=== PATIENT | female | born 1985 | race Caucasian/White ===

== ENCOUNTER 2018-07-09 15:44 | Outpatient (REF) | payer BC, SELFPAY ==
--- NOTE | 2018-07-09 14:05 | PAPFT_PTH ---
PATIENT: Renee Perrin LOC: [facility] U#:[id number] AGE/SX: 32/F ROOM: RE07/09/[address]: Soni Osei RN : 1985 BED: DIS: 07/09/2018 SPEC #: [id number] RECD: 07/09/18 18:09 STATUS: POOJA REXiomara #: [id number] CRISTINA: 07/09/18 14:[address]: Soni Osei DEPT: [facility] Cytology RECD BY: Ilsa Angelo ENTERED: 07/09/18 18:10 SP TYPE: PAPFT OTHR DR: Mraina Ramachandran APRN Tissues: 1 - CX/ENDOCX FOR PAP SMEARS Procedures: PAP THIN PREP/UVM Screening Comments: [id number]
[2018-07-09 19:38] LABS: *AMPHETAMINES SCREEN URINE Negative (Negative); *BARBITURATES SCREEN URINE Negative (Negative); *BENZODIAZEPINES SCREEN URINE Negative (Negative); Cannabinoids THC Negative (Negative); Cocaine Screen,Urine Negative (Negative); METHADONE URINE SCREEN Negative (Negative); OPIATES URINE SCREEN Negative (Negative)
[2018-07-09 19:39] LABS: Tricyclic Antidepressants Negative (Negative)
[2018-07-13 14:03] LABS: Chlamydia Result Negative; GC Result Negative; Specimen Description CERVIX
[2018-07-13 15:00] LABS: Buprenorphine Negative; Norbuprenorphine Negative
== END 2018-07-09 16:04 ==
LOC: LBN 15:44
PROVIDERS: PCP Nurse Practitioner Family; Visit Provider Advanced Practice Midwife
DX: Z34.91 Encounter for supervision of normal pregnancy, unspecified, first trimester (principal); Z11.3 Encounter for screening for infections with a predominantly sexual mode of transmission; Z12.4 Encounter for screening for malignant neoplasm of cervix
CPT/HCPCS: 80307; 87491; 87591; 88142; 87086

== ENCOUNTER 2018-09-01 00:12 | Outpatient (CLI) | payer BC, SELFPAY ==
--- NOTE | 2018-09-01 13:07 | DI.US_ITS ---
Predicted Gestational Age: Indication/History: SURVEY 18.3 Wks Range: 17.3 to 19.3 Prior US done on: Determined by: First US X LMP History EDC by prior US: 01/30/19 For multiple gestations: Baby PLACENTA: Grade: 0 Location: Anterior X Posterior PRESENTATION: RT X LT LOW LYING PREVIA Cephalic Trans (Head RT LT ) Varied X Breech BIOMETRY: Anatomy Identified: BPD: 41 mm 18.3 wks 4 chamber Heart X Heart Rate 153 BPM HC: 161 mm 18.6 wks LVOT X Post Fossa X AC: 128 mm 18.3 wks RVOT X Ventricles X FL: 28 mm 18.4 wks Stomach X Nose NS Bladder X Lips NS Cisterna Magna: 3.3 mm CI: 80 Kidneys X Palate X Cerebellum: 1.83 mm 3 vessel cord X Spine X EFW: grms % Cord Insertion X NS= not seen Composite Age (US) 18.4 wks Many abnormalities cannot be diagnosed. A normal exam does not exclude congenital abnormality. EDC by US 01/29/19 Amniotic Fluid Index: Normal COMMENTS: RUQ: LUQ: RLQ: LLQ: Total: cm Biophysical Profile: Score 0/2 PEYTON (>2cm) Respirations (>30 sec) Body flexion/extension Extremity flexion/extension TOTAL SCORE Please see the OB ultrasound worksheet for complete details. The nose and lips were not well seen on today's examination and the patient is returning 09/08/18 for a follow up examination. A single viable fetus is noted in varying position. No anomaly was observed. Based on the patient's measurements, the gestational age is approximately 18 weeks and 4 days. The placenta is anterior. There is a normal quantity of amniotic fluid. SUMMARY: Unremarkable examination however the lips and nose are not demonstrated on today's examination and the patient is returning 09/08/18 for further evaluation.
== END 2018-09-01 00:32 ==
PROVIDERS: PCP Nurse Practitioner Family; Visit Provider Advanced Practice Midwife
DX: Z34.92 Encounter for supervision of normal pregnancy, unspecified, second trimester (principal)
CPT/HCPCS: 76805

== ENCOUNTER 2018-09-08 00:16 | Outpatient (CLI) | payer BC, SELFPAY ==
--- NOTE | 2018-09-08 10:13 | DI.US_ITS ---
SYMPTOMS/DIAGNOSIS: F/U 09/01/18 US TO VISUALIZE NOSE AND LIPS LIMITED OBSTETRICAL ULTRASOUND: Predicted Gestational Age: Indication/History: Wks Range: to Prior US done on: Determined by: First US LMP History EDC by prior US: For multiple gestations: Baby PLACENTA: Grade: Location: Anterior Posterior PRESENTATION: RT LT LOW LYING PREVIA Cephalic Trans (Head RT LT ) Varied Breech BIOMETRY: Anatomy Identified: BPD: mm wks 4 chamber Heart Heart Rate 163 BPM HC: mm wks LVOT Post Fossa AC: mm wks RVOT Ventricles FL: mm wks Stomach Nose X Bladder Lips X Cisterna Magna: mm CI: Kidneys Palate Cerebellum: mm 3 vessel cord Spine EFW: grms % Cord Insertion NS= not seen Composite Age (US) wks Many abnormalities cannot be diagnosed. A normal exam does not exclude congenital abnormality. EDC by US Amniotic Fluid Index: Oligo Normal Polyhydramnios RUQ: LUQ: RLQ: LLQ: Total: cm Biophysical Profile: Score 0/2 PEYTON (>2cm) Respirations (>30 sec) Body flexion/extension Extremity flexion/extension TOTAL SCORE COMMENTS: Comparison is 09/01/18. There is a single intrauterine gestation. heart rate is 163 beats per minute. The nose and lips were visualized on the examination and are grossly unremarkable. Complete anatomic evaluation and biometric results were performed on the examination from 09/01/18.
== END 2018-09-08 00:36 ==
PROVIDERS: PCP Nurse Practitioner Family; Visit Provider Advanced Practice Midwife
DX: Z34.92 Encounter for supervision of normal pregnancy, unspecified, second trimester (principal); Z36.2 Encounter for other antenatal screening follow-up
CPT/HCPCS: 76815

== ENCOUNTER 2018-11-10 12:57 | Outpatient (CLI) | payer MEDICAID, SELFPAY ==
[2018-11-10 14:04] LABS: Glucose,1 Hr (Glucola) 122 mg/dL (80-140)
[2018-11-10 14:42] LABS: Abs Immature Grans 0.08 k/cumm (0.0-0.09); Absolute Basophil Count 0.03 k/cumm (0.0-0.2); Absolute Eosinophil Count 0.34 k/cumm (0.0-0.7); Absolute Lymphocyte Count 2.55 k/cumm (1.2-3.4); Basophils % 0.2; Eosinophils % 2.2; HCT 39.6 % (36.0-46.0); HGB 13.3 g/dL (12.0-15.5); Immature Grans % 0.5; Lymphocytes % 16.7; Mean Corp. HGB Concentration 33.6 g/dL (32.0-36.0); Mean Corpuscular Hemoglobin 31.5 pg (27.0-33.0); Mean Corpuscular Volume 93.8 fL (80-95); Mean Platelet Volume 10.3 fL (8.0-11.0); Monocytes % 8.8; Neutrophils % 71.6; Platelet Count 333 x1000/uL (130-400); RBC 4.22 m/cumm (4.00-5.20); RBC Distribution Width 12.8 % (11.7-14.6); White Blood Cell Count 15.26 k/cumm (4.4-10.8)
[2018-11-10 15:09] LABS: Absolute Monocyte Count 1.34 k/cumm (0.11-0.7); Absolute Neutrophil Count 10.93 k/cumm (1.2-6.7)
[2018-11-11 10:34] LABS: Hepatitis B Surface Ag Negative (NEGAT)
[2018-11-11 11:00] LABS: HIV-1/2 Ag & Ab Screen Negative (NEGAT); Hepatitis C Ab w Rflx HCV PCR Negative (NEGAT)
[2018-11-11 11:02] LABS: Syphilis Serology (RPR) Negative (Negative); Varicella IgG Antibody Positive
[2018-11-11 11:24] LABS: Rubella IgG Ab (UVM) Positive
== END 2018-11-10 13:17 ==
PROVIDERS: Advanced Practice Midwife; PCP Nurse Practitioner Family; Visit Provider Advanced Practice Midwife
DX: Z34.91 Encounter for supervision of normal pregnancy, unspecified, first trimester (principal); Z11.4 Encounter for screening for human immunodeficiency virus [HIV]; Z11.59 Encounter for screening for other viral diseases; Z01.84 Encounter for antibody response examination
CPT/HCPCS: 36415; 82950; 85027; 86787; 86803; 87340; 87389; 84443; 85025; 86592; 86762

== ENCOUNTER 2019-01-05 14:57 | Outpatient (REF) | payer MEDICAID, SELFPAY ==
[2019-01-05 15:37] LABS: *AMPHETAMINES SCREEN URINE Negative (Negative); *BARBITURATES SCREEN URINE Negative (Negative); *BENZODIAZEPINES SCREEN URINE Negative (Negative); Cannabinoids THC Negative (Negative); Cocaine Screen,Urine Negative (Negative); METHADONE URINE SCREEN Negative (Negative); OPIATES URINE SCREEN Negative (Negative)
[2019-01-05 15:46] LABS: Tricyclic Antidepressants Negative (Negative)
[2019-01-08 11:27] LABS: Buprenorphine Negative
== END 2019-01-05 15:17 ==
LOC: LBN 14:57
PROVIDERS: PCP Nurse Practitioner Family; Visit Provider Advanced Practice Midwife
DX: Z34.93 Encounter for supervision of normal pregnancy, unspecified, third trimester (principal); Z36.85 Encounter for antenatal screening for Streptococcus B
CPT/HCPCS: 80307; 87081

== ENCOUNTER 2019-01-26 07:00 | Inpatient (IN) | payer MEDICAID, SELFPAY ==
[2019-01-26] MEDS: Penicillin G POT. 5,000,000 UNITS in Normal Saline 100 ML 200 UNITS IVPB (06:32)
[2019-01-26] MEDS: Normal Saline Flush 10 ML SYR IVP (06:33)
[2019-01-26 10:26] LABS: HCT 38.5 % (36.0-46.0); HGB 13.1 g/dL (12.0-15.5); Mean Corpuscular Hemoglobin 31.5 pg (27.0-33.0); Mean Corpuscular Volume 92.5 fL (80-95); Platelet Count 315 x1000/uL (130-400); RBC 4.16 m/cumm (4.00-5.20); RBC Distribution Width 13.1 % (11.7-14.6)
[2019-01-26] MEDS: Penicillin G POT. 3,000,000 UNITS in Normal Saline 50 ML 100 UNITS IVPB (10:40)
[2019-01-26] MEDS: Hamamelis Leaf/Glycerin 100 EACH BOX PR (18:00)
== END 2019-01-28 10:35 | disposition home or self-care (01) | DRG 807 ==
PROVIDERS: Admitting Provider Advanced Practice Midwife; PCP Nurse Practitioner Family; Visit Provider Advanced Practice Midwife
DX: O99.824 Streptococcus B carrier state complicating childbirth (principal); Z37.0 Single live birth; Z3A.39 39 weeks gestation of pregnancy; O70.1 Second degree perineal laceration during delivery; O99.284 Endocrine, nutritional and metabolic diseases complicating childbirth; E04.9 Nontoxic goiter, unspecified
CPT/HCPCS: 36415; 85027; 86900; 86901; G0378; J2540

== ENCOUNTER 2019-03-13 11:26 | Emergency (ER) | payer MEDICAID, SELFPAY ==
[2019-03-13 11:30] VITALS: BP 117/85; PULSE 86; RESP 16; TEMP 35.9; O2SAT 95
--- NOTE | 2019-03-13 11:47 | ED.GENADUL_ITS ---
Discharge Plan Disposition Patient Disposition: HOME Condition: Good Discharge Details Chief Complaint: Cellulitis Clinical Impression: Erythema migrans (Lyme disease) Primary Care Provider: Marina Ramachandran ED Provider: Suyapa Hogan Home Meds and New Rx's Prescriptions: New amoxicillin 500 mg capsule 500 mg PO TID Qty: 63 RF: 0 Continued PreNata 1 EACH tablet,chewable 2 tab-cap PO DAILY RF: 0 Discharge Instructions Instructions: Lyme Disease (ED) Additional Instructions: Encourage hydration. Please take the amoxicillin as prescribed. I am concerned that the rash on the back of your knee is consistent with a bull's-eye rash and early Lyme disease. This will be a 21-day course of antibiotics. Please take a probiotic while on the antibiotics. Please monitor yourself and your baby for adverse reactions as discussed. If you develop new or worsening symptoms please seek care urgently once again. Otherwise, please follow-up with your primary care for reevaluation in the next 1 to 2 weeks. Referrals: Marina Ramachandran NP [Primary Care Provider] - Discharge Data Discharge Date/Time-TO BE ENTERED AT DEPARTURE: 03/13/19 12:05 Medical Decision Making Patient is a 33-year-old female presents today with chief complaint of a tick e xposure to the posterior aspect of her right knee. Leaves exposure happened approximate 3 to 4 days ago and tick was removed last night. Noted surrounding erythema and some achiness to this area. Is been afebrile. Denies any joint pain. Patient is 1.5 months and is still breast-feeding. On exam, patient has a oblong area of erythema concerning for erythema migrans on the posterior aspect of the right knee. Plan to begin on antibiotics. As the patient is breast-feeding, will offer amoxicillin. We did discuss monitoring her child as well as herself or adverse reactions or allergic reactions. I have asked that she follow-up with her primary care doctor for reevaluation. I do not see any evidence of septic joint, patient appears nontoxic. Encouraged rest and elevation. Advised Tylenol or ibuprofen as needed for discomfort. All of her questions and concerns were addressed and she is in agreement this plan. HPI General Mode of arrival: ambulatory . Date/Time Provider Initiated Documentation: 03/13/19 11:47 . Limitations to Documentation: no limitations . Information obtained by: patient and RN notes reviewed . HPI Narrative: Patient is a 33-year-old female who is 1.5 months . She continues to breast- feed. States that last night she removed a tick from the posterior aspect of her right knee. Noted surrounding erythema and mild discomfort. No fevers or chills. No other constitutional symptoms. Believes that she was exposed 3 to 4 days ago. Related Data Home Medications Medication Instructions Recorded Confirmed PreNata 2 tab-cap PO DAILY cap 10/18/15 03/13/19 amoxicillin 500 mg PO TID #63 cap 03/13/19 Previous Rx's Medication Instructions Recorded amoxicillin 500 mg PO TID #63 cap 03/13/19 Allergies Allergy/AdvReac Type Severity Reaction Status Date / Time No Known Drug Allergies Allergy Verified 03/13/19 11:36 General Stated Complaint: Cellulitis QUINN: 4 Review of Systems Constitutional Constitutional: Reports as per HPI, Denies chills and Denies fever(s) Musculoskeletal Musculoskeletal: Reports as per HPI Integumentary/Breasts Skin/Breast: Reports as per HPI Neurologic Neurologic: Reports as per HPI, Denies sensory deficit and Denies paresthesias [facility] Medical History (Acute) delivered 01/26/2019 Surgical History Tooth extraction Widsom tooth extraction Family History (Updated 11/10/18 @ 14:20 by Shirlene Payne CNM) Grandfather Personal history of malignant neoplasm Prostate CA Heart disease Grandmother Personal history of malignant neoplasm breast CA Grandmother Personal history of malignant neoplasm Breast CA Dementia Uterine cancer Hypothyroid Great Grandmother Heart disease Father , Suicide Mental disorder Depression --> suicide Maternal Aunt Personal history of malignant neoplasm Breast CA Sister Alcohol abuse exercised induced Social History Smoking/Tobacco Use Status: Never Alcohol Intake: never Substance use type: does not use Seatbelt use: always Do you feel safe at home: Yes Do you feel safe in your relationship?: Yes Female Reproductive History Menstrual control method: none History History 4 Para 2 Hx # Term Pregnancies 2 Multiple births 0 Hx # Pregnancies 0 Ectopic pregnancies 0 AB induced 0 Hx Number of Living Children 1 AB spontaneous 2 Past Pregnancies Del. Date GA/Weeks # Outcome Route Wgt Sex Labor Lgth Anesthes ia Location Prov Complic 08/18/16 40 No Successful vaginal 3.232 kg Male 25 hrs kMelecio néstordarynmonikeli 01/26/19 39 No Successful vaginal 2.948 kg Female 9hrs 28 min Soni Mayer CNM Delivery Date: 08/18/16 On 07/09/18 @ 13:42 KIPPAULASOIN HAMMONDS ~ 2nd degree repair, w/o problems Delivery Date: 01/26/19 On 02/04/19 @ 09:55 Tamiko Martínez 2nd degree perineal laceration, repaired Exam Const General: cooperative, healthy appearing, comfortable, no acute distress and well developed Nutritional Appearance: average body habitus and well nourished Orientation: alert and awake Resp Effort & Inspection: normal respiratory effort, able to speak in complete sentences and no respiratory distress Cardio Rate: regular rate Rhythm: regular rhythm Skin General skin exam: erythema Full body images: 1. Tyner bullseye rash with central area of small scab consistent with bite Neuro General: alert and awake Cognition: normal cognition Speech: speech normal Gait: normal gait Sensory Exam: no sensory deficits noted Extrem Right lower extremity: full ROM, normal capillary refill, no joint enlargement, knee Details: tenderness (achiness posterior right knee as above), normal ROM and abrasion (central small area of scabbing consistent with tick pulled off); no swelling, no ecchymosis, no crepitus, no foreign bodies, no deformity and no unusual warmth and lower leg Details: normal to inspection and no edema; no tenderness, no localized swelling and no palpable cords; abnormal to inspection (erythema migrans rash as above) and no edema Psych Appearance: grossly normal and well kempt Mental Status: mental status grossly normal Speech and Movement: speech and movement normal Course Vital Signs Vital signs: Vital Signs Temperature 35.9 C L 03/13/19 11:30 Pulse 86 03/13/19 11:30 Respiratory Rate 16 03/13/19 11:30 Blood Pressure 117/85 03/13/19 11:30 Pulse Oximetry 95 03/13/19 11:30 Temperature 35.9 C L 03/13/19 11:30 Temperature Source Tympanic 03/13/19 11:30 Pulse 86 03/13/19 11:30 Respiratory Rate 16 03/13/19 11:30 Respiratory Effort Non-Labored 03/13/19 11:37 Blood Pressure 117/85 03/13/19 11:30 Pulse Oximetry 95 03/13/19 11:30 Pain Level 1 03/13/19 11:30
== END 2019-03-13 12:05 | disposition home or self-care (01) ==
PROVIDERS: Emergency Provider Physician Assistant; PCP Nurse Practitioner Family
DX: L03.115 Cellulitis of right lower limb (principal); A69.20 Lyme disease, unspecified; W57.XXXA Bitten or stung by nonvenomous insect and other nonvenomous arthropods, initial encounter
CPT/HCPCS: 99283

== ENCOUNTER → 2022-03-20 02:10 | Outpatient (CLI) | payer MEDICAID, SELFPAY ==
--- NOTE | 2022-03-20 06:45 | DI.US_ITS ---
Exam(s) US OB 1ST TRIMESTER EXAM: US OB 1ST TRIMESTER CLINICAL HISTORY: 1st trimester with uterine fibroid,D25.9 TECHNIQUE: Ultrasound performed using standard protocol. COMPARISON: No exams were available for comparison FINDINGS: First trimester Ob ultrasound was performed. There is a single viable intrauterine gestation with cr own-rump length measurements consistent with gestational age of 12 weeks 4 days and composite measure ments consistent with 12 weeks 6 days and EDC of September 26. Normal quantity of amniotic fluid noted. Trophoblastic tissue appears intact. cardiac rate is 159 BPM Ovaries are unremarkable in appearance. IMPRESSION: DATA REPOSITORY:
== END ==
PROVIDERS: PCP Nurse Practitioner Family; Visit Provider Obstetrics & Gynecology
DX: O34.11 Maternal care for benign tumor of corpus uteri, first trimester (principal); D25.9 Leiomyoma of uterus, unspecified; Z3A.12 12 weeks gestation of pregnancy
CPT/HCPCS: 76801

== ENCOUNTER 2022-03-20 03:43 | Outpatient (CLI) | payer MEDICAID, SELFPAY ==
[2022-03-20 15:13] LABS: Abs Immature Grans 0.05 10^3/uL (0.0-0.06); Absolute Eosinophil Count 0.26 10^3/uL (0.0-0.7); Absolute Lymphocyte Count 2.51 10^3/uL (1.2-3.4); Absolute Monocyte Count 1.21 10^3/uL (0.1-0.8); Basophils % 0.3; Eosinophils % 1.8; HCT 36.3 % (36.0-46.0); HGB 12.3 g/dL (11.2-15.7); Immature Grans % 0.3; Lymphocytes % 17.3; MCH 30.8 pg (27.0-33.0); MCHC 33.9 % (32.0-36.0); MCV 91 fL (80-95); MPV 9.9 fL (8.0-11.0); Monocytes % 8.3; Platelet Count 355 10^3/uL (130-400); RDW 11.8 % (11.7-14.6); RDW-SD 39.2 fL; WBC 14.53 10^3/uL (4.4-10.8)
[2022-03-20 15:24] LABS: Absolute Basophil Count 0.04 10^3/uL (0.0-0.2); Absolute Neutrophil Count 10.46 10^3/uL (1.2-6.7)
[2022-03-21 08:55] LABS: Hepatitis B Surface Ag Negative (Negative)
[2022-03-21 09:37] LABS: HIV-1/2 Ag & Ab Screen Negative (Negative)
[2022-03-21 09:54] LABS: Hepatitis C Ab w Rflx HCV PCR Negative (Negative)
[2022-03-21 10:57] LABS: Rubella IgG Ab (UVM) Positive (See Note); Varicella IgG Antibody Positive (See Note)
[2022-03-21 19:46] LABS: Syphilis IgG w/Reflex Nonreactive (Nonreactive)
== END 2022-03-20 03:44 | disposition home or self-care (01) ==
LOC: LBO 03:43
PROVIDERS: PCP Nurse Practitioner Family; Visit Provider Advanced Practice Midwife
DX: Z34.91 Encounter for supervision of normal pregnancy, unspecified, first trimester
CPT/HCPCS: 36415; 86787; 86803; 86850; 86900; 86901; 87340; 87389; 85025; 86762; 86780

== ENCOUNTER 2022-03-20 15:12 | Outpatient (REF) | payer MEDICAID, SELFPAY ==
--- NOTE | 2022-03-20 14:30 | PAPFT_PTH ---
PATIENT: Renee Perrin LOC: [facility] U#:[id number] AGE/SX: 36/F ROOM: RE03/20/[address]: Shirlene Payne : 1985 BED: DIS: 03/20/2022 SPEC #: [id number] RECD: 03/20/22 18:13 STATUS: POOJA REQ #: [id number] CRISTINA: 03/20/22 14:[address]: Shirlene Payne DEPT: [facility] Cytology RECD BY: Ilsa Angelo ENTERED: 03/20/22 18:14 SP TYPE: PAPFT OTHR DR: Marina Ramachandran APRN Tissues: 1 - CX/ENDOCX FOR PAP SMEARS Procedures: PAP THIN PREP/UVM Screening HPV DNA PROBE Comments: [id number]
[2022-03-20 16:58] LABS: *AMPHETAMINES SCREEN URINE Negative (Negative); *BARBITURATES SCREEN URINE Negative (Negative); *BENZODIAZEPINES SCREEN URINE Negative (Negative); Cannabinoids THC Negative (Negative); Cocaine Screen,Urine Negative (Negative); METHADONE URINE SCREEN Negative (Negative); OPIATES URINE SCREEN Negative (Negative)
[2022-03-20 17:03] LABS: Tricyclic Antidepressants Negative (Negative)
[2022-03-21 13:02] LABS: Chlamydia Result Negative (Negative); GC Result Negative (Negative)
[2022-03-26 12:28] LABS: Buprenorphine Negative ng/mL (Cutoff: 5.0); Norbuprenorphine Negative ng/mL (Cutoff: 2.5)
== END 2022-03-20 15:13 | disposition home or self-care (01) ==
LOC: LBN 15:12
PROVIDERS: PCP Nurse Practitioner Family; Visit Provider Advanced Practice Midwife
DX: Z34.91 Encounter for supervision of normal pregnancy, unspecified, first trimester (principal); Z11.3 Encounter for screening for infections with a predominantly sexual mode of transmission; Z3A.11 11 weeks gestation of pregnancy; Z12.4 Encounter for screening for malignant neoplasm of cervix
CPT/HCPCS: 80307; 80348; 87491; 87591; 88142; 87624

== ENCOUNTER 2022-05-22 02:11 | Outpatient (CLI) | payer MEDICAID, SELFPAY ==
--- NOTE | 2022-05-22 07:30 | DI.US_ITS ---
Exam(s) US OB 2-3 TRIMESTER EXAM: US OB 2-3 TRIMESTER CLINICAL HISTORY: ,z34.90. TECHNIQUE: Transabdominal obstetrical ultrasound performed. COMPARISON: US US OB 1ST TRIMESTER from 03/20/2022 FINDINGS: Number of fetuses: 1 position: BREECH heart rate: 155bpm Placental location: There is a grade 1 anterior placenta. No evidence of previa. Amniotic fluid index: Amount of fluid is within normal limits. ANATOMICAL SURVEY: Within normal limits. BIOMETRIC DATA: BPD: 4.97cm, 21weeks HC: 18.84cm, 21weeks 1day AC: 15.79cm, 20weeks 6days FL: 3.71cm, 21weeks 6days Cisterna magna: 5.1mm Cerebellum: 2.2cm EFW: 413.96g, 0.9lb, 69.6% Composite Age: 21weeks 2days CHICO: 09/30/2022 Heart Rate: 155bpm IMPRESSION: 1. Single live intrauterine gestation as above. 2. Normal anatomic survey. DATA REPOSITORY:
== END 2022-05-22 02:31 ==
LOC: DI 02:11
PROVIDERS: PCP Nurse Practitioner Family; Visit Provider Advanced Practice Midwife
DX: Z34.92 Encounter for supervision of normal pregnancy, unspecified, second trimester (principal)
CPT/HCPCS: 76805

== ENCOUNTER 2022-07-17 03:10 | Outpatient (CLI) | payer MEDICAID, SELFPAY ==
[2022-07-17 10:17] LABS: HCT 36.4 % (36.0-46.0); HGB 12.2 g/dL (11.2-15.7); MCH 31.5 pg (27.0-33.0); MCHC 33.5 % (32.0-36.0); MCV 94 fL (80-95); MPV 9.5 fL (8.0-11.0); Platelet Count 306 10^3/uL (130-400); RBC 3.87 10^6/uL (3.93-5.22); RDW-SD 44.5 fL; WBC 14.27 10^3/uL (4.4-10.8)
[2022-07-17 10:34] LABS: Glucose,1 Hr (Glucola) 125 mg/dL (80-140)
== END 2022-07-17 03:11 | disposition home or self-care (01) ==
LOC: LBO 03:10
PROVIDERS: PCP Nurse Practitioner Family; Visit Provider Advanced Practice Midwife
DX: Z34.93 Encounter for supervision of normal pregnancy, unspecified, third trimester (principal); Z3A.28 28 weeks gestation of pregnancy
CPT/HCPCS: 36415; 82950; 85027

== ENCOUNTER 2022-09-10 14:40 | Outpatient (REF) | payer MEDICAID, SELFPAY ==
[2022-09-10 18:10] LABS: *AMPHETAMINES SCREEN URINE Negative (Negative); *BARBITURATES SCREEN URINE Negative (Negative); *BENZODIAZEPINES SCREEN URINE Negative (Negative); Cannabinoids THC Negative (Negative); Cocaine Screen,Urine Negative (Negative); METHADONE URINE SCREEN Negative (Negative); OPIATES URINE SCREEN Negative (Negative)
[2022-09-10 18:11] LABS: Tricyclic Antidepressants Negative (Negative)
[2022-09-19 10:54] LABS: Buprenorphine Negative ng/mL (Cutoff: 5.0); Norbuprenorphine Negative ng/mL (Cutoff: 2.5)
== END 2022-09-10 14:41 | disposition home or self-care (01) ==
LOC: LBN 14:40
PROVIDERS: PCP Nurse Practitioner Family; Visit Provider Advanced Practice Midwife
DX: Z34.93 Encounter for supervision of normal pregnancy, unspecified, third trimester (principal); Z36.85 Encounter for antenatal screening for Streptococcus B; Z3A.36 36 weeks gestation of pregnancy
CPT/HCPCS: 80307; 80348; 87081

== ENCOUNTER 2022-10-02 14:58 | Inpatient (IN) | payer MEDICAID, SELFPAY ==
[2022-10-02] VITALS (16 sets, daily range): BP systolic 111–139; BP diastolic 58–77; PULSE 83–125; RESP 16; TEMP 36.4–36.7
--- NOTE | 2022-10-02 15:16 | HPE_ITS ---
Date of service: 10/02/22 Time of Service: 15:16 Assessment and Plan Assessment and plan (1) Spontaneous onset of labor: Status: Acute Assessment and plan: Admit to Center. Comfort measures. Anticipate . OB-HPI Labor/Delivery History of Present Illness Reason for Visit: Labor Chief Complaint: Uterine Contractions. CHICO Calculator Estimated Delivery Date Method Current WG Current Estimate 10/03/22 LMP (Certain) 39w 6d Other Estimates 09/30/22 Ultrasound #1 40w 2d Comments: Renee presented for her visit today and reports contractions since 0900. SVE performed at the office and cervix 6 cms per Altagracia berman CNM History of Present Expected Delivery Route/Plan - CNM FOB/ - Jarod Perrin (3rd child together) Doesn't want to know gender, FOB will announce at If male, will circ GBS negative Specific Issues/Plan 1. AMA - declines cfDNA screen, Offered level 2 US at [facility]- declines. Known CF negative. 2. Uterine fibroid, posterior, seen at 8 wk dating scan. At 11 wks f/up US in DI fibroid not visualized. 3. increased risk of preeclampsia d/t age & family hx - low dose ASA daily @ 12 wks 4. FOB is vaccinated against covid, Renee is not. She has had covid in the past. 5. Tdap declined 6. Anemia at 37 wks (hgb 10.6), to begin oral iron supplement PFSH All Active Problems (Updated 10/02/22 @ 15:20 by Shirlene Payne CNM) Spontaneous onset of labor (Acute) (Acute) Uterine fibroid during , antepartum (Acute) not visualized or remarked on on any US done this Surgical History Tooth extraction Widsom tooth extraction Family History (Updated 03/20/22 @ 14:14 by Shirlene Payne CNM) Grandfather Personal history of malignant neoplasm Prostate CA Heart disease Grandmother Personal history of malignant neoplasm breast CA Grandmother Personal history of malignant neoplasm Breast CA Dementia Uterine cancer Hypothyroid Great Grandmother Heart disease Father , Suicide Mental disorder Depression --> suicide Maternal Aunt Personal history of malignant neoplasm Breast CA Sister Asthma exercise induced Sister Preeclampsia Social History Smoking/Tobacco Use Status: Never Smoking risk assessment performed?: Yes Alcohol Intake: never Substance use type: does not use Seatbelt use: always Do you feel safe at home: Yes Do you feel safe in your relationship?: Yes Female Reproductive History Menstrual control method: none History History 4 Para 2 Hx # Term Pregnancies 2 Multiple births 0 Hx # Pregnancies 0 Ectopic pregnancies 0 AB induced 0 Hx Number of Living Children 2 AB spontaneous 2 Past Pregnancies Del. Date GA/Weeks # Preg Succ Route Wgt Sex Labor Lgth Anesth esia Location Prov Complic 08/18/16 40 No vaginal 7 lb 2 oz Male 25 hrs k. jung agustin cnm 01/28/18 No 07/13/18 9 No 01/26/19 39 No vaginal 6 lb 8 oz Female 9hrs 28 min galileo flores CNM Delivery Date: 08/18/16 Last Updated by: Shirlene Payne CNM ~ 2nd degree repair, w/o problems, Melvin Delivery Date: 01/28/18 Last Updated by: Shirlene Kinsey CNM SAB no interventions Delivery Date: 07/13/18 Last Updated by: Shirlene Kinsey CNM SAB no interventions Delivery Date: 01/26/19 Last Updated by: Shirlene Payne CNM 2nd degree perineal laceration, repaired, Raeann pos. GBS Meds Allergies and Home Medications Allergies Allergy/AdvReac Type Severity Reaction Status Date / Time No Known Drug Allergies Allergy Verified 10/02/22 14:32 Home Medications Medication Instructions Recorded Confirmed Type vit no.37-iron fum 29 mg 2 tab-cap PO DAILY 10/18/15 10/02/22 History iron-folic acid 1 mg chewable tablet (PreNata) aspirin 81 mg capsule 81 mg PO DAILY 04/17/22 10/02/22 History ferrous sulfate 325 mg (65 mg 325 mg PO DAILY #60 tabs 09/18/22 10/02/22 Rx iron) tablet Exam Physical Exam Vital signs: Pulse BP 86 116/75 10/02/22 15:11 10/02/22 15:11 Detailed Labor and Delivery Exam Dilation: 6 Effacement (%): 90 station: -2 Cervix position: posterior Consistency: soft Sol Score: Cervical Points Exam 0 1 2 3 Dilation Closed 1-2cm 3-4 cm 5-6cm Effacement 0-30% 40-50% 60-70% 80% Consistency Firm Medium Soft Station -3 -2 -1,0 +1,+2 Position Posterior Mid Anterior Amniotic Membrane Status: Intact Monitor Mode: External Contraction Frequency(min): every 5 min Contraction Duration(sec): 50-60 Contraction Intensity: Moderate Fetus A Heart Rate Baseline: 130 Monitor Accelerations: 15 X 15 Monitor Decelerations: None Variability: Moderate (6-25 BPM) Presentation: Vertex Categories: Category I Respiratory Exam Respiratory Exam: Normal Cardiovascular Exam Cardiovascular Exam: Normal Abdominal Exam Abdominal Exam: Normal Exam Exam: Normal Extremities Exam Extremities Exam: Normal Skin Exam Skin Exam: Normal Psychiatric Exam Psychiatric Exam: Normal Risk Assessment Risk for Shoulder Dystocia Historical/Initial OB: NEGATIVE FOR: Pelvic Abnormality, Pre- BMI>30, Previous Shoulder Dystocia or Previous Macrosomia Delivery Plan @ 36wks: Risk for Pre-Eclampsia Date Initiated/Initials: indicated, started at 12 wks. JK Yes, if one or more: NEGATIVE FOR: Hx Pre-E/Gest HTN, Chronic HTN, Multiple Gestation, Pre-gestational DM, Renal Disease, Systemic Lupus or APA Syndrome Yes, if 2 or more: POSITIVE FOR: Age>= 35 yrs and Mother/Sister w/ Pre-E (younger sis. w/ pre-e); NEGATIVE FOR: Nulliparity, >10yr btwn pregnancies, BMI>30, ethinicty or Previous IUGR Risk for Post- Hemorrhage Initial: NEGATIVE FOR: Multiple Gestation, Previous PPH, Known Clotting Deficiency, Grand Multiparity or Anticoagulation Counseled re: Active Management: Yes Risks Reviewed Risks Reviewed Upon Admission: Yes
[2022-10-02 15:48] LABS: HCT 36.9 % (36.0-46.0); HGB 12.7 g/dL (11.2-15.7); MCH 31.2 pg (27.0-33.0); MCHC 34.4 % (32.0-36.0); MCV 91 fL (80-95); MPV 10.4 fL (8.0-11.0); Platelet Count 256 10^3/uL (130-400); RBC 4.07 10^6/uL (3.93-5.22); RDW 13.5 % (11.7-14.6); RDW-SD 43.8 fL; WBC 16.43 10^3/uL (4.4-10.8)
[2022-10-02] MEDS: Lidocaine 1% Multi-Dose 10 ML VIAL (17:30)
[2022-10-02] MEDS: Oxytocin 10 UNITS/ML VIAL (17:30)
--- NOTE | 2022-10-02 18:08 | W.OBDELIVERY ---
Date of service: 10/02/22 Time of Service: 18:08 OB Labor/ Delivery Information Baby A Delivery Delivery Method: Spontaneaous Presentation: Cephalic Cephalic Position: Vertex Vertex Position: Right Occipital Anterior Cord Description Comment: true knot. loose Nuchal cord x 1 Amniotic Fluid: Meconium Estimated Blood Loss: 350 Delivery Outcome: Liveborn Complications: none Transferred: Remains with Mother Note: Renee ambulated for comfort. FHTs 130sduring first stage of labor. ROM occurred and she experienced an urge to push shortly after ROM. She moved to hands and knees position. FHTs 120 in second stage. She progressed to full dilation and began pushing. Second stage huddle was done. Spontaneous delivery of male delivered in SAMMI position. Baby was placed on mother's abdomen and dried and stimulated. Spontaneous cry. Cord was clamped and cut by the baby's father. The placenta delivered spontaneously and appears to by intact with a three vessel cord. Pitocin 10 units IM was administered after delivery of the placenta. The perineum was inspected and a second degree laceration was repaired with 3-0 and 2-0 vicryl suture under local anesthetic. The baby did breastfeed. After delivery, Mother and baby and father of the baby were stable and bonding well in the delivery room and there were no complications. Providers Nurse Relay Engineer: Shirlene Payne Nurse: Tee Allen Nurse: Griselda Cool Labor/Delivery Information Number of Babies in Womb: 1 Steroids Given: None Reason Steroids Not Administered: N/A Group Beta Strep: Negative Antibiotics Administered: No Rubella Status: Immune Blood Type: O+ Varicella Immunity: Immune Shoulder Dystocia: No Stages of Labor Onset of Labor Date: 10/02/22 Onset of Labor Time: 09:00 Complete Dilatation Date: 10/02/22 Complete Dilatation Time: 17:20 Labor - Stage 1 Duration: 8 hours and 20 minutes ROM Baby A: 10/02/22 ROM Baby A: 17:17 ROM Total Time- Baby A: [id number] Delivery Date-Baby A: 10/02/22 Delivery Time-Baby A: 17:25 Labor Stage 2 Duration: 5 minutes Placenta Delivery Date-Baby A: 10/02/22 Placenta Delivery Time-Baby A: 17:34 Labor-Stage 3 Duration: 9 minutes Total Length of Labor-Baby A: 8 hours and 25 minutes Placenta Status: Delivered Baby A Gender: Male Gestational Status: Term (39-41.6 wks) Gestational Age in Weeks/Days: 39 Weeks and 6 Days Score-1 Minute Interval(Baby A) Heart Rate-1 minute: 100 BPM or Greater Respiratory Effort- 1 minute: Spontaneous/Strong Cry Muscle Tone-1 minute: Active Movement Reflex Response-1 minute: Prompt Response Color-1 minute: Pallor or Cyanosis Total Score-1 minute: 8 Score-5 Minute Interval(Baby A) Heart Rate- 5 minute: 100 BPM or Greater Respiratory Effort-5 minute: Spontaneous/Strong Cry Muscle Tone-5 minute: Active Movement Reflex Response-5 minute: Prompt Response Color-5 minute: Bluish Hands or Feet Total Score- 5 minute: 9 Interventions Repair of Laceration Type: Perineal, Laceration Extension: Second Degree. Sponge Count Correct: No Sponges Placed in Vagina, Sharp Count Correct: Yes.
[2022-10-03 01:18] VITALS: BP 106/61; PULSE 86; TEMP 36.8
[2022-10-03 04:00] VITALS: BP 103/72; PULSE 103; TEMP 36.7
[2022-10-03 04:10] VITALS: BP 103/72; PULSE 102
[2022-10-03 08:15] VITALS: BP 118/84; PULSE 110; RESP 16; TEMP 36.6; O2SAT 97
--- NOTE | 2022-10-03 10:34 | DSE_ITS ---
Date of service: 10/03/22 Time of Service: 10:34 DS: Diagnosis Discharge Diagnosis (1) Term of male : Status: Acute Asessment and Plan: Caring for baby independently. Pain is managed well with oral analgesics. Voiding without difficulty. well. A - stable mother and baby , Post day 1 P - Discharge to home this evening after 24 hours. Routine post instructions. [facility] Discharge Plan Disposition Patient Disposition: Home Condition: Good Discharge Details Reason For Visit: Labor Admit Date/Time: 10/02/22 14:58 Admit Provider: Shirlene Payne Attending Provider: Shirlene Payne Primary Care Provider: Marina Ramachandran Home Meds and New Rx's Prescriptions: No Action aspirin 81 mg capsule 81 mg PO DAILY ferrous sulfate 325 mg (65 mg iron) tablet 325 mg PO DAILY Qty: 60 3RF PreNata 1 EACH tablet,chewable 2 tab-cap PO DAILY Discharge Instructions Stand Alone Forms: BC Instructions, Post Vaginal Deliver Activity:: Activity as Tolerated Equipment/Supplies:: No Equipment Needed Diet:: As Tolerated OB:DS Summary Summary Vaginal Delivery Method: Spontaneaous Episiotomy Description: None Laceration Description: Perineal Laceration Extension: Second Degree Contraception Discussed Contraception Discussed: Yes Contraceptive Plan: Foam/Condoms, [place] Infant Gender-Baby A: Male Status at Discharge Functional status at discharge: independent ambulation Overall status at discharge: patient is back to baseline Mental Status: mental status grossly normal Speech and Movement: speech and movement normal Mood: congruent mood Affect: normal affect Exam Physical Exam Vital signs: Temp Pulse Resp BP Pulse Ox 97.9 F 110 H 16 118/84 97 10/03/22 08:15 10/03/22 08:15 10/03/22 08:15 10/03/22 08:15 10/03/22 08:15 Respiratory Exam Respiratory Exam: Normal Cardiovascular Exam Cardiovascular Exam: Normal Fundal Exam Fundus: Below Umbilicus and Firm Extremities Exam Extremity Exam: Normal Skin Exam Skin Exam: Normal Psychiatric Exam Psychiatric Exam: Normal PFSH All Active Problems (Updated 10/03/22 @ 10:34 by Shirlene Payne CNM) Term of male (Acute) Surgical History Tooth extraction [place] tooth extraction Family History (Updated 03/20/22 @ 14:14 by Shirlene Payne CNM) Grandfather Personal history of malignant neoplasm Prostate CA Heart disease Grandmother Personal history of malignant neoplasm breast CA Grandmother Personal history of malignant neoplasm Breast CA Dementia Uterine cancer Hypothyroid Great Grandmother Heart disease Father , Suicide Mental disorder Depression --> suicide Maternal Aunt Personal history of malignant neoplasm Breast CA Sister Asthma exercise induced Sister Preeclampsia Social History Smoking/Tobacco Use Status: Never Smoking risk assessment performed?: Yes Alcohol Intake: never Substance use type: does not use Seatbelt use: always Do you feel safe at home: Yes Do you feel safe in your relationship?: Yes Female Reproductive History Menstrual control method: none History History 4 Para 2 Hx # Term Pregnancies 2 Multiple births 0 Hx # Pregnancies 0 Ectopic pregnancies 0 AB induced 0 Hx Number of Living Children 2 AB spontaneous 2 Past Pregnancies Del. Date GA/Weeks # Preg Succ Route Wgt Sex Labor Lgth Anesth esia Location Prov [facility] 08/18/16 40 No vaginal 7 lb 2 oz Male 25 hrs k. a nikole ybarra 01/28/18 No 07/13/18 9 No 01/26/19 39 No vaginal 6 lb 8 oz Female 9hrs 28 min aMelecio flores CNM Delivery Date: 08/18/16 Last Updated by: Shirlene Payne CNM ~ 2nd degree repair, w/o problems, Melvin Delivery Date: 01/28/18 Last Updated by: Shirlene Kinsey CNM SAB no interventions Delivery Date: 07/13/18 Last Updated by: Shirlene Kinsey CNM SAB no interventions Delivery Date: 01/26/19 Last Updated by: Shirlene Payne CNM 2nd degree perineal laceration, repaired, Raeann pos. GBS DS: Data Vitals/I&O Vitals and I&O: Vital Signs Temperature 97.9 F 10/03/22 08:15 Temperature Source Oral 10/03/22 08:15 Pulse 110 H 10/03/22 08:15 Pulse Rhythm Regular 10/03/22 08:15 Respiratory Rate 16 10/03/22 08:15 Blood Pressure 118/84 10/03/22 08:15 Blood Pressure Mean 95 10/03/22 08:15 Pulse Oximetry 97 10/03/22 08:15 Oxygen Delivery Method Room Air 10/02/22 15:08 Oxygen Flow Rate 0 10/02/22 15:08 Comment declined any pain or discomfort at this time 10/03/22 08:15 Intake & Output 10/02/22 10/02/22 10/03/22 11:59 23:59 11:59 Output Total 1150 / 1150 Balance -1150 / -1150 Weight 172 lb Output: Urine 1150 / 1150 Other: Urine Color Dark Red Urine Appearance Hematuria Urine Odor None Voiding Methods Toilet Data Completed and Pending Labs on day of discharge: Labs from last 24 hours 10/02/22 10/02/22 15:37 15:37 WBC 16.43 H RBC 4.07 Hgb 12.7 Hct 36.9 MCV 91 MCH 31.2 MCHC 34.4 RDW 13.5 Plt Count 256 MPV 10.4 Patient ABO/Rh O Positive Antibody Screen NEGATIVE
[2022-10-03 12:00] VITALS: BP 115/79; PULSE 99; RESP 16; TEMP 36.7; O2SAT 97
[2022-10-03 15:15] VITALS: BP 112/73; PULSE 90; RESP 16; TEMP 36.7; O2SAT 97
== END 2022-10-03 19:05 | disposition home or self-care (01) | DRG 807 ==
PROVIDERS: Admitting Provider Advanced Practice Midwife; PCP Nurse Practitioner Family; Visit Provider Advanced Practice Midwife
DX: O99.02 Anemia complicating childbirth (principal); Z37.0 Single live birth; Z3A.39 39 weeks gestation of pregnancy; D64.9 Anemia, unspecified; O70.1 Second degree perineal laceration during delivery; O69.81X0 Labor and delivery complicated by cord around neck, without compression, not applicable or unspecified; O69.2XX0 Labor and delivery complicated by other cord entanglement, with compression, not applicable or unspecified
CPT/HCPCS: 85027; 86850; 86900; 86901; J2590

== ENCOUNTER → 2022-12-05 00:59 | Outpatient (CLI) | payer MEDICAID, SELFPAY ==
--- NOTE | 2022-12-05 08:00 | DI.US_ITS ---
Exam(s) US THYROID EXAM: US THYROID CLINICAL HISTORY: enlarged thyroid,E04.9. TECHNIQUE: Ultrasound thyroid performed using standard protocol. COMPARISON: US US OB 2-3 TRIMESTER from 05/22/2022 FINDINGS: Thyroid lobes as well as the isthmus exhibit normal size and echotexture. There is a solitary small nodule in the left lobe. No nodule seen in the right lobe nor in the isthmus. Summary as follows: LEFT THYROID LOBE: Measures 1.0 cm AP x 1.6 cm wide x 4.3 cm craniocaudal Nodule details as follows: Size: Measures 0.3 x 0.2 x 0.3 cm cm Composition: Solid-2 points Echogenicity: Hypoechoic-2 points Shape: Wider than taller-0 points Margin: Smooth- 0 points Echogenic Foci: None-0 points Total Points for this nodule: 4 ACR Ti-Rads Category: TR4 ISTHMUS: Normal thickness. There are no nodules in the isthmus. RIGHT THYROID LOBE: Measures 1.3 cm AP x 1.9 wide x 4.8 cm craniocaudal No significant nodules. LYMPH NODES: There is no significant adenopathy. IMPRESSION: 1. There is a solitary TR 4 solid nodule in the left thyroid lobe which can be followed conservativel y as it measures less than 1.5 cm. 2. No other focal findings in the thyroid gland in both lobes exhibit normal size. 3. There is no significant lymphadenopathy. DATA REPOSITORY:
== END ==
PROVIDERS: PCP Nurse Practitioner Family; Visit Provider Advanced Practice Midwife
DX: E04.1 Nontoxic single thyroid nodule (principal)
CPT/HCPCS: 76536

== ENCOUNTER 2022-12-10 03:21 | Outpatient (CLI) | payer MEDICAID, SELFPAY ==
[2022-12-10 14:50] LABS: FREE T4 0.72 ng/dL (0.76-1.46); TSH 1.39 uIU/mL (0.36-3.74)
[2022-12-10 22:09] LABS: T3,Free 4.1 pg/mL (2.8-5.3)
== END 2022-12-10 03:22 | disposition home or self-care (01) ==
PROVIDERS: PCP Nurse Practitioner Family; Visit Provider Advanced Practice Midwife
DX: E04.1 Nontoxic single thyroid nodule (principal)
CPT/HCPCS: 36415; 84439; 84443; 84481

== ENCOUNTER 2023-04-10 00:53 | Outpatient (CLI) | payer MEDICAID, SELFPAY ==
[2023-04-10 12:00] LABS: FREE T4 0.75 ng/dL (0.76-1.46); TSH 1.54 uIU/mL (0.36-3.74)
== END 2023-04-10 00:54 | disposition home or self-care (01) ==
LOC: LBO 00:53
PROVIDERS: Absent Provider Nurse Practitioner Adult Health; PCP Nurse Practitioner Adult Health; Visit Provider Nurse Practitioner Adult Health
DX: E04.1 Nontoxic single thyroid nodule (principal); R79.89 Other specified abnormal findings of blood chemistry
CPT/HCPCS: 36415; 84439; 84443

== ENCOUNTER → 2023-06-05 00:16 | Outpatient (CLI) | payer MEDICAID, SELFPAY ==
--- NOTE | 2023-06-05 07:30 | DI.US_ITS ---
Exam(s) US THYROID EXAM: US THYROID CLINICAL HISTORY: f/u thyroid nodule,e04.1. TECHNIQUE: Ultrasound thyroid performed using standard protocol. COMPARISON: US US THYROID from 12/05/2022 FINDINGS: ISTHMUS: 1.7 mm RIGHT LOBE: Size: 4.4 x 1 x 1.4 cm Echogenicity: Normal. Vascularity: Normal. Nodules: None. LEFT LOBE: Size: 4.3 x 1 x 1.5 cm Echogenicity: Normal. Vascularity: Normal. Nodules: There is a stable 0.3 x 0.2 x 0.3 cm hypoechoic nodule in the mid left lobe. The finding is consistent with a TI rads level 4 nodule. Due to its size, no follow-up is recommended. OTHER FINDINGS: None. IMPRESSION: Stable appearance of the 0.3 cm left thyroid nodule. No new thyroid nodules are seen. DATA REPOSITORY:
== END ==
PROVIDERS: PCP Nurse Practitioner Adult Health; Visit Provider Nurse Practitioner Adult Health
DX: E04.1 Nontoxic single thyroid nodule (principal)
CPT/HCPCS: 76536